=== PATIENT | female | born 1990 | race Caucasian/White ===

== ENCOUNTER 2019-06-05 22:10 | Emergency (ER) | payer OTHER ==
[~2019-06-05] VITALS: Ht 157.5 cm; Wt 57.6 kg
[2019-06-05 22:18] VITALS: Ht 157.5 cm; Wt 57.6 kg
[2019-06-06 01:09] VITALS: BP 116/78
== END 2019-06-06 01:09 | disposition home or self-care (01) ==
LOC: ED 22:10
DX: J02.9 Acute pharyngitis, unspecified (principal); Z90.89 Acquired absence of other organs
CPT/HCPCS: J1100